=== PATIENT | female | born 1940 | race Caucasian/White ===

== ENCOUNTER 2023-07-22 06:48 | Day surgery (SDC) | payer OTHER ==
[~2023-07-22] VITALS: Ht 149.9 cm; Wt 40.8 kg
[~2023-07-22 06:48] MED LIST: AMLO2.5T50; BENA40TA65; HYDR12.5; LOVA40TA75
[2023-07-22] MEDS ORDERED: MIDAZOLAM HCL 5 MG/5 ML VIAL ONE (07:22)
[2023-07-22] MEDS ORDERED: fentaNYL CITRATE/PF 100 MCG/2 ML AMP ONE (07:22)
[2023-07-22 08:05] VITALS: O2SAT 98
[2023-07-22 11:38] VITALS: BP_SYST 144; PULSE 62; RESP 17
== END 2023-07-22 09:10 | disposition home or self-care (01) ==
LOC: SDS 06:48 → SMU 06:50 → SDS 09:10
PROVIDERS: ATTEND Internal Medicine
DX: R10.31 Right lower quadrant pain (principal); R13.10 Dysphagia, unspecified; K29.50 Unspecified chronic gastritis without bleeding; K57.30 Diverticulosis of large intestine without perforation or abscess without bleeding; K64.8 Other hemorrhoids; I48.91 Unspecified atrial fibrillation; E78.5 Hyperlipidemia, unspecified; Z90.49 Acquired absence of other specified parts of digestive tract; Z90.710 Acquired absence of both cervix and uterus; Z79.899 Other long term (current) drug therapy
CPT/HCPCS: 45378; 43239; 87081; 36415; 88305; 88312; 88313; 99152; J2250; J3010